=== PATIENT | male | born 2000 | race Caucasian/White ===

== ENCOUNTER 2024-05-07 07:28 | Emergency (ER) | payer OTHER ==
[~2024-05-07] VITALS: Ht 188 cm; Wt 97.1 kg
[2024-05-07] MEDS ORDERED: OMEP10CASR PO (07:37)
[2024-05-07 08:33] VITALS: BP 131/77; TEMP 98.1; O2SAT 98
== END 2024-05-07 08:37 | disposition home or self-care (01) ==
LOC: M ED 07:28
DX: R11.2 Nausea with vomiting, unspecified (principal); R19.7 Diarrhea, unspecified; Z79.899 Other long term (current) drug therapy

== ENCOUNTER 2024-05-30 15:38 | Emergency (ER) | payer OTHER ==
[~2024-05-30] VITALS: Ht 188 cm; Wt 97.3 kg
[~2024-05-30 15:38] MED LIST: OMEP10CASR PO
[2024-05-30] MEDS: LIDOCAINE 2% MDV 20ML VIAL SC ONE (18:35)
[2024-05-30 19:28] VITALS: BP 171/86; TEMP 97.4; O2SAT 98
== END 2024-05-30 19:43 | disposition home or self-care (01) ==
LOC: M ED 15:38
DX: S91.212A Laceration without foreign body of left great toe with damage to nail, initial encounter (principal); W20.8XXA Other cause of strike by thrown, projected or falling object, initial encounter; K21.9 Gastro-esophageal reflux disease without esophagitis; Z79.83 Long term (current) use of bisphosphonates; Y92.9 Unspecified place or not applicable; Y93.89 Activity, other specified; Y99.1 Military activity